=== PATIENT | male | born 1995 | race Caucasian/White ===

== ENCOUNTER 2020-10-08 00:56 | Emergency (ER) | payer OTHER, SELFPAY ==
[2020-10-08 01:00] VITALS: BP 00/00; PULSE 106; RESP 16; TEMP 36.4; O2SAT 98; BMI 53.1
--- NOTE | 2020-10-08 01:11 | ED.EAR ---
HPI - Ear Problem General Chief complaint: Ear Problems Stated complaint: bug in ear Time Seen by Provider: 10/08/20 01:10 Source: patient Mode of arrival: ambulatory Limitations: no limitations History of Present Illness HPI Narrative: 25-year-old male presents with a bug in his ear. Stated that he was driving and the bug flew in. He has no other complaints at this time. MD Complaint: ear pain Location: left ear Duration: constant Severity: severe Treatment prior to arrival: none Review of Systems Review of Systems: Constitutional: No Fever, No Chills ENT/Mouth: Positive left Ear Pain with insect, No Hoarseness, No sore throat Eyes: No Eye Pain, No Swelling, No Redness, No Foreign Body Cardiovascular: No Chest Pain, No SOB Respiratory: No Cough, No Dyspnea Gastrointestinal: No Nausea, No Vomiting, No Diarrhea, No abdominal Pain Genitourinary: No Dysuria, No Hematuria Musculoskeletal: No joint pain, No Myalgias, No Joint Swelling Skin: No Skin lacerations, No rash Neuro: No Weakness, No Numbness, No Paresthesias, No Loss of Consciousness, No Dizziness, No Headache Psych: No Anxiety/Panic, No Depression Heme/Lymph: no easy bruising, no Lymphadenopathy Endocrine: No Polyuria, No Polydipsia Yes all other systems are reviewed and are negative [facility] Past Medical History Attestation statement: The following information was validated with the patient. Source: old records reviewed Medical History No known health problems Physical Exam Vital Signs: Vital Signs: Last Vital Signs Temp 97.5 F 10/08/20 01:00 Pulse 106 H 10/08/20 01:00 Resp 16 10/08/20 01:00 BP 00/00 L 10/08/20 01:00 Pulse Ox 98 10/08/20 01:00 Body Mass Index 53.1 Appearance: Alert. Oriented X3. Moderate distress. Eyes: Pupils equal, round and reactive to light. ENT: Pharynx normal. Large insect in left ear canal. Irrigated with normal saline and alcohol solution. Insect removed with alligator forceps. Tympanic membrane normal status post insect removal. Neck: Normal inspection. Neck supple. CVS: Normal heart rate and rhythm. Pulses normal. Respiratory: No respiratory distress. Breath sounds normal. Abdomen: Soft and nontender. Skin: Skin warm and dry. Normal skin color. Normal skin turgor. Extremities: No lower extremity edema. Neuro: No motor deficit. No sensory deficit. Course Course Course Narrative: 25-year-old male presents with insect to the left ear. Irrigated with normal saline and alcohol. Insect was removed with alligator forceps. No injury to the canal or tympanic membrane. Plan of care is to discharge home. Patient verbalized understanding of and agrees to plan of care discharge home. Procedures Foreign Body Removal Site: left Description of foreign body: other (Insect) Sedation/Analgesia: none Technique: removal with forceps and irrigation Confirmed by:: direct visualization Complications: none MDM - Ear Differential Diagnosis Differential diagnosis: Likely foreign body in ear Medical Records Attestation: I reviewed the patient's medical records. Discharge Plan Discharge Clinical Impression: Foreign body in ear Qualifiers: Encounter type: initial encounter Laterality: left Qualified Code(s): T16.2XXA - Foreign body in left ear, initial encounter Patient Disposition: Home, Self-Care Instructions: Ear Foreign Body (ED) Additional Instructions: You were evaluated for insect to the left ear. We removed the insect without incident. Your left ear canal and tympanic membrane are intact. Thank you for choosing this emergency department for evaluation. Please follow-up with primary care physician as needed. Return to the emergency department for any new, concerning, or worsening symptoms.
== END 2020-10-08 01:26 | disposition home or self-care (01) ==
LOC: HO.ED 01:17
PROVIDERS: Emergency Provider Internal Medicine
DX: T16.2XXA Foreign body in left ear, initial encounter (principal); X58.XXXA Exposure to other specified factors, initial encounter; Y93.89 Activity, other specified; Y92.818 Other transport vehicle as the place of occurrence of the external cause; Y99.9 Unspecified external cause status
CPT/HCPCS: 69200; 99283; 99284